=== PATIENT | male | born 1935 | race Caucasian/White ===

== ENCOUNTER 2018-11-04 04:32 | Emergency (ER) | payer OTHER ==
[~2018-11-04] VITALS: Ht 182.9 cm; Wt 90.7 kg
--- NOTE | 2018-11-04 08:27 | EKG ---
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1935 Requested By: Jeffrey Reyes Order Number: [id number] MD: Jerrell Rivera Measurements Intervals [place] Rate: 76 P: 17 [place]: 152 QRS: -63 QRSD: 163 T: 44 QT: 421 QTc: 474 Interpretive Statements Sinus rhythm RBBB Motion artifact noted in initial half of EKG No previous ECG available for comparison Electronically Signed On 11-04-2018 8:27:05 CDT by Jerrell Rivera [email or web address] ��������������������������������������������� <ELECTRONICALLY SIGNED> ���������������������������������������� By: Jerrell Rivera MD ��������������������������������������������� 11/04/18 0827 0443 0443 Jerrell Rivera MD /[facility]
--- NOTE | 2018-11-04 08:28 | EKG ---
[place] [address] [address] [employer] [facility] [place] [address] ELECTROCARDIOGRAM REPORT Name: CHARLEY BARDALES [facility] [id number] ������������������ Admission: 11/04/18 ������������������ Attend Phys: Discharge: ������������������ Date of : 33 Report #: [id number] ����������������������������������������������������������������� [id number] THIS REPORT FOR: //name// [facility] ED Test Date: 2018-11-04 Test Time: 04:44:45 Pat Name: CHARELY BARDALES Department: Room: 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1935 Requested By: Jeffrey Reyes Order Number: [id number] MD: Jerrell Rivera Measurements Intervals [place] Rate: 115 P: [place]: QRS: -61 QRSD: 218 T: 49 QT: 371 QTc: 513 Interpretive Statements Sinus tachycardia RBBB and LAFB Probable left ventricular hypertrophy No previous ECG available for comparison Electronically Signed On 11-04-2018 8:27:44 CDT by Jerrell Rivera [email or web address] ��������������������������������������������� <ELECTRONICALLY SIGNED> ���������������������������������������� By: Jerrell Rivera MD ��������������������������������������������� 11/04/18 0827 0444 0444 Jerrell Rivera MD /[facility]
== END 2018-11-04 05:05 ==
LOC: ER 04:32
DX: I46.9 Cardiac arrest, cause unspecified (principal)